=== PATIENT | female | born 1995 | race Caucasian/White ===

== ENCOUNTER 2025-07-10 08:54 | Day surgery (SDC) | payer OTHER, MEDICAID ==
[~2025-07-10 08:54] MED LIST: Sodium Chloride 0.9% 10 ML Syringe FLUSH PRN
[2025-07-10] MEDS ORDERED: Propofol 200 MG/20 ML SDV IV ONE (08:55)
[2025-07-10] MEDS: Lactated Ringers 1,000 ML IV SCH (10:40)
== END 2025-07-10 11:51 | disposition home or self-care (01) ==
LOC: FB.SDS 08:54
PROVIDERS: ATTEND Surgery
DX: K63.5 Polyp of colon (principal); K62.5 Hemorrhage of anus and rectum; K64.4 Residual hemorrhoidal skin tags; K64.0 First degree hemorrhoids; Z88.1 Allergy status to other antibiotic agents; Z88.8 Allergy status to other drugs, medicaments and biological substances; Z86.0101 Personal history of adenomatous and serrated colon polyps; Z79.899 Other long term (current) drug therapy
CPT/HCPCS: 00811; 45384; 81025; 88305; A9270; J2003; J2704; J7120